=== PATIENT | male | born 1980 | race Caucasian/White ===

== ENCOUNTER 2021-04-17 16:42 | Inpatient (IN) | payer OTHER ==
[~2021-04-17] VITALS: Wt 63.8 kg
[2021-04-17 18:28] LABS: Magnesium, Blood 2.5 mg/dL (1.6-2.4)
[2021-04-17 18:32] LABS: Anion Gap 25 mmol/L (6-16); Blood Urea Nitrogen 9 mg/dL (8-24); Bun/Creatinine Ratio 14.9 (12.0-20.0); CO2, Blood 6 mmol/L (21-32); Calcium, Blood 8.7 mg/dL (8.5-10.1); Chloride, Blood 104 mmol/L (98-108); Creatinine, Blood 0.61 mg/dL (0.60-1.20); Glomerular Filtration Rate >60 (60-); Glucose, Blood 227 mg/dL (70-99); Phosphorus, Blood 1.1 mg/dL (2.5-4.9); Potassium, Blood 3.7 mmol/L (3.5-5.5); Sodium, Blood 135 mmol/L (136-145)
--- NOTE | 2021-04-17 19:37 | NUR ---
SUMMARY PT WAS A DIRECT ADMIT THIS EVENING. PT WAS FLOWN FROM [place] OR WITH DKA. HAD INSULIN GTT AND SODIUM BICARB WITH D5 RUNNING. NO ORDERS UPON ARRIVAL DUE TO DIRECT ADMIT. INSULIN AND FLUIDS ON HOLD AND DR. DON CAME TO ROOM. LABS HAD NOT BEEN DRAWN SINCE THIS AM THEREFORE LABS WERE DRAWN THEN STARTED NS AND INSULIN GTT. PT NAUSEATED THIS EVENING AND ZOFRAN GIVEN. PT IS A/O X4. ABLE TO MOVE SELF IN BED AND USE URINAL. PT HAS WALKING BOOT TO L FOOT FROM A FRACTURE THAT OCCURED IN SEPTEMBER. PT TAKES BOOT ON AND OFF HIMSELF. DR. ODN NOTIFIED OF LABS AND NEW ORDERS RECEIVED. REPORT GIVEN TO RAFITA JOHNSON.
[2021-04-17 21:48] LABS: Magnesium, Blood 2.5 mg/dL (1.6-2.4)
[2021-04-17 22:03] LABS: Anion Gap 26 mmol/L (6-16); Blood Urea Nitrogen 10 mg/dL (8-24); Bun/Creatinine Ratio 14.3 (12.0-20.0); CO2, Blood 6 mmol/L (21-32); Calcium, Blood 8.1 mg/dL (8.5-10.1); Chloride, Blood 107 mmol/L (98-108); Glomerular Filtration Rate >60 (60-); Glucose, Blood 257 mg/dL (70-99); Phosphorus, Blood 1.9 mg/dL (2.5-4.9); Potassium, Blood 3.6 mmol/L (3.5-5.5); Sodium, Blood 139 mmol/L (136-145)
--- NOTE | 2021-04-17 22:41 | NUR ---
SPOKE WITH DR. DON REGARDING CRITICAL CO2 X2 TODAY BOTH AT 6. TOLD TO ORDER 1L NS BOLUS WELL STAY HIGHER ON THE INSULIN DRIP. ORDERS PLACED AND WILL CONTINUE TO CHECK REPEAT LABS
[2021-04-18 02:11] LABS: Anion Gap 15 mmol/L (6-16); Blood Urea Nitrogen 9 mg/dL (8-24); CO2, Blood 14 mmol/L (21-32); Calcium, Blood 7.9 mg/dL (8.5-10.1); Chloride, Blood 113 mmol/L (98-108); Glomerular Filtration Rate >60 (60-); Glucose, Blood 200 mg/dL (70-99); Magnesium, Blood 2.2 mg/dL (1.6-2.4); Sodium, Blood 142 mmol/L (136-145)
[2021-04-18 02:16] LABS: Phosphorus, Blood 0.8 mg/dL (2.5-4.9)
--- NOTE | 2021-04-18 02:53 | NUR ---
CALL PLACED TO DR. TIJERINA REGARDING CRITICAL PHOS 0.8. ORDERED RECEIVED FOR KPHOS. RATE/DRIPS VERIFIED FOR CONTINUED USE. CO2 IMPROVING AND GAP 15. TOLD TO CONTINUE CVURRENT DRIPS AND TO CANCEL ALL LABS THIS MORNING AND CHECK AT 0600
[2021-04-18 05:39] LABS: BASOPHILS ABSOLUTE AUTO 0.02 K/mm3 (0.00-0.23); BASOPHILS PERCENT AUTO 0 % (0-2); EOSINOPHILS PERCENT AUTO 0 % (0-6); Hemoglobin 12.3 g/dL (13.5-17.5); IMMATURE GRAN ABSOLUTE AUTO 0.04 K/mm3 (0.00-0.10); IMMATURE GRAN PERCENT AUTO 1 % (0-1); LYMPHOCYTES ABSOLUTE AUTO 0.73 K/mm3 (0.84-5.20); LYMPHOCYTES PERCENT AUTO 11 % (21-46); MONOCYTES ABSOLUTE AUTO 0.84 K/mm3 (0.16-1.47); MONOCYTES PERCENT AUTO 13 % (4-13); Mean Corpuscular HGB Conc 36.2 g/dL (31.5-36.5); Mean Corpuscular Volume 94 fL (80-100); Mean Platelet Volume 8.6 fL (9.1-12.4); NEUTROPHILS ABSOLUTE AUTO 4.87 K/mm3 (1.96-9.15); NEUTROPHILS PERCENT AUTO 75 % (41-73); Platelet Count 206 K/mm3 (150-400); RDW Coefficient Variation 11.6 % (11.7-14.2); RDW Standard Deviation 39.5 fL (35.1-46.3); Red Blood Cell Count 3.62 M/mm3 (4.30-5.90)
--- NOTE | 2021-04-18 06:20 | NUR ---
SHIFT SUMMARY: PATIENT WAS VERY FRUSTRATED AT CHANGE OF SHIFT DUE TO HOW EVENTS UNFOLDED YESTERDAY ALL LEADING UP TO THIS ADMISSION WELL NOT GETTING PROPER INSULIN COVERAGE AND TREATMENT WHEN HE FIRST GOT HERE. INSULIN DRIP WAS STARTED AT 1830 BEFORE I CAME ON AND IT HAS BEEN HIGH 6UNITS/HR. GAP DOWN TO 15 AND CO2 ALSO IMPROVING. AWAITING 0530 LAB RESULTS TO HOPEFULLY TRANSITION HIM OFF THE DRIP TODAY. PATIENT LOOKS BETTER AND SAYS HE IS FEELING BETTER BUT REALLY WANTS TO DRINK FLUIDS CHARO. PATIENT ON D5NS AT 200ML/HR WELL INSULIN DRIP ONLY AT 1 UNIT/HR CURRENTLY. BS DOWN TO 140S. VOIDS APPROPRIATELY VIA URINAL. HE HAS SLOWLY BECOME MORE COOPERATIVE OVERNIGHT. A 3RD PIV WAS INSERTED WELL SO HE CAN USE AT LEAST ONE OF HIS ARMS. REFUSED TO ANSWER ADMISSION QUESTIONS INITIALLY AND A LOT OF TIMES HE WOULD JUST NOT REPLY. A LOT OF INITIAL QUESTIONS ANSWERED FINALLY. FILLED OUT THE "VERBAL RELEASE OF INFORMATION" FORM AND ASKED IF I COULD TOMAS HIS DAD DOWN AND HE LAUGHED AND SAIS NO. "NOBODY NEEDS TO KNOW ANY INFORMATION OR ANYTHING THAT IS GOING ON." CLARIFIED THAT IF HIS FATHER CALLED THAT HE DOES NOT WANT US TO TELL HIM ANYTHING AND HE AGREED. PATIENT DOES HAVE PHONE AT BEDSIDE IF HE CHOOSES TO USE
[2021-04-18 06:21] LABS: Alanine Aminotransfer (ALT/SGP 42 U/L (12-78); Albumin/Globulin Ratio 1.1 (0.8-1.8); Alk Phos 128 U/L (50-136); Anion Gap 10 mmol/L (6-16); Bilirubin, Total 0.8 mg/dL (0.1-1.0); Blood Urea Nitrogen 7 mg/dL (8-24); Bun/Creatinine Ratio 13.1 (12.0-20.0); CO2, Blood 17 mmol/L (21-32); Calcium, Blood 7.9 mg/dL (8.5-10.1); Chloride, Blood 116 mmol/L (98-108); Creatinine, Blood 0.54 mg/dL (0.60-1.20); Globulin, Blood 2.8 g/dL (2.2-4.0); Glomerular Filtration Rate >60 (60-); Glucose, Blood 156 mg/dL (70-99); Potassium, Blood 3.3 mmol/L (3.5-5.5); Sodium, Blood 143 mmol/L (136-145); Total Protein, Blood 5.8 g/dL (6.4-8.2)
[2021-04-18 06:31] LABS: Aspartate Aminotrans (AST/SGOT 27 U/L (12-37); Magnesium, Blood 2.3 mg/dL (1.6-2.4); Phosphorus, Blood 2.3 mg/dL (2.5-4.9)
[2021-04-18 11:18] LABS: C-REACTIVE PROTEIN, EXT RANGE 1.23 mg/dL (0.000-0.300); Percent Saturation 58.8 % (20.0-50.0)
--- NOTE | 2021-04-18 15:14 | NUR ---
RECIEVED REPORT FROM [employer]ETING SUPPORT SPECIALIST. PATIENT TO TRANSFER FROM ICU 11.
--- NOTE | 2021-04-18 15:15 | NUR ---
SUMMARY PT RESTING IN BED. A/O X4. INSULIN GTT AND IVF WERE TURNED OFF THIS AM 1.5 HRS AFTER LONG ACTING INSULIN WAS GIVEN. BLOOD SUGARS HAVE BEEN STABLE. PT HAS BEEN TOLERATING DIET AND DRINKING FLUIDS. PT HAS LUMP UNDER L ARMPIT THAT IS SLIGHTLY RED. NOTIFIED DR. RICO, NO NEW ORDERS. PT WAS HAVING HIGH BLOOD PRESSURE READINGS. NOTICED BP CUFF WAS ON LEG, MOVED IT UP TO UPPER ARM AND BP WAS BACK TO BASELINE. NO SIGN OF DISTRESS. PT TAKEN VIA W/C. REPORT GIVEN TO KETAN JOHNSON.
--- NOTE | 2021-04-18 15:40 | NUR ---
PATIENT ARRIVED TO ROOM 302 @ 1530. PATIENT SITUATED IN ROOM. CALL LIGHT WITHIN REACH.
--- NOTE | 2021-04-19 04:11 | NUR ---
SHIFT SUMMARY NO ACUTE CHANGES TO REPORT THIS SHIFT, PT HAS RESTED MOST OF THE NIGHT AND HAS DENIED NEEDS. PT IS DENYING PAIN AND HAS REFUSED SCHEDULED TORALDOL FOR LUMP UNDER ARMPIT. BLOOD SUGARS ARE ELEVATED BUT STABLE. PT INDEPENDENT IN THE ROOM. AFFECT IS FLAT AND WITHDRAWN, AND PT SOMEWHAT IRRITABLE. ENHANCED ISOLATION PRECAUTIONS IN PLACE, PT WITH MINIMAL COVID SYMPTOMS AND SATS WNL ON RA. BED IN LOWEST POSITION, CALL LIGHT WITHIN REACH.
[2021-04-19 05:05] LABS: Hematocrit 33.6 % (37.0-53.0); Hemoglobin 12.3 g/dL (13.5-17.5); Mean Corpuscular HGB 33.8 pg (26.0-34.0); Mean Corpuscular HGB Conc 36.6 g/dL (31.5-36.5); Mean Corpuscular Volume 92 fL (80-100); Mean Platelet Volume 9.1 fL (9.1-12.4); Platelet Count 184 K/mm3 (150-400); RDW Coefficient Variation 11.2 % (11.7-14.2); RDW Standard Deviation 38.2 fL (35.1-46.3); Red Blood Cell Count 3.64 M/mm3 (4.30-5.90); White Blood Cell Count 6.22 K/mm3 (4.00-11.30)
[2021-04-19 06:13] LABS: Alanine Aminotransfer (ALT/SGP 40 U/L (12-78); Albumin, Blood 3.1 g/dL (3.4-5.0); Albumin/Globulin Ratio 1.1 (0.8-1.8); Alk Phos 136 U/L (50-136); Anion Gap 19 mmol/L (6-16); Aspartate Aminotrans (AST/SGOT 21 U/L (12-37); Bilirubin, Total 0.9 mg/dL (0.1-1.0); Blood Urea Nitrogen 3 mg/dL (8-24); Bun/Creatinine Ratio 5.5 (12.0-20.0); CO2, Blood 16 mmol/L (21-32); Calcium, Blood 8.7 mg/dL (8.5-10.1); Chloride, Blood 98 mmol/L (98-108); Creatinine, Blood 0.54 mg/dL (0.60-1.20); Globulin, Blood 2.7 g/dL (2.2-4.0); Glomerular Filtration Rate >60 (60-); Glucose, Blood 208 mg/dL (70-99); Potassium, Blood 2.6 mmol/L (3.5-5.5); Sodium, Blood 133 mmol/L (136-145); Total Protein, Blood 5.8 g/dL (6.4-8.2)
--- NOTE | 2021-04-19 06:51 | NUR ---
POTASSIUM POTASSIUM 2.6 WITH AM LABS, DR. TIJERINA CALLED AND NOTIFIED. HE WOULD LIKE 80 MEQ TOTAL GIVEN OF POTASSIUM. 40 MEQ IV, AND 40 MEQ PO. ORDERS PLACED.
--- NOTE | 2021-04-19 18:25 | NUR ---
SHIFT SUMMARY PT AXO, IRRITABLE BUT COOPERATIVE WITH CARE. HYPTENTION NOTED WITH AM VITALS THOUGH OVERNIGHT CASHIER DID NOT NOTIFY NURSE. BP STABLE AT THIS TIME. PT MEDICATED FOR CBG PER EMAR THOUGH PT WOULD TAKE LESS INSULIN THAN SUGGESTED BY SLIDING SCALE, SEE EMAR. PT REPORTS PAIN IN AXILLA R/T CELLULITIS THOUGH REFUSED PAIN MEDICATION. IV PATENT AND SALINE LOCKED. PT REPORTS SOME OCCASIONAL COUGH. UP AD CRIS WITH BOOT. NO ACUTE CHANGES THIS SHIFT. BED IN LOW POSITION, CALL LIGHT WITHIN REACH.
[2021-04-19] MEDS ORDERED: BASAGLAR K100 UNIT/1 SC (22:36)
[2021-04-20 04:44] LABS: Hematocrit 33.3 % (37.0-53.0); Hemoglobin 12.3 g/dL (13.5-17.5); Mean Corpuscular HGB Conc 36.9 g/dL (31.5-36.5); Mean Corpuscular Volume 92 fL (80-100); Mean Platelet Volume 8.9 fL (9.1-12.4); Platelet Count 174 K/mm3 (150-400); RDW Coefficient Variation 11.3 % (11.7-14.2); RDW Standard Deviation 38.3 fL (35.1-46.3); Red Blood Cell Count 3.62 M/mm3 (4.30-5.90); White Blood Cell Count 5.14 K/mm3 (4.00-11.30)
--- NOTE | 2021-04-20 05:11 | NUR ---
SHIFT SUMMARY NO ACUTE CHANGES TO REPORT THIS SHIFT. PT HAS RESTED T/O THE SHIFT, HE HAS DENIED PAIN OR NEEDS. COVID SYMPTOMS REMAIN MILD, HE HAS AN OCCASIONAL COUGH. PT INDEPENDENT IN THE ROOM. VITALS STABLE. PLAN IS FOR POSSIBLE DC TODAY, BED IN LOWEST POSITION, CALL LIGHT WITHIN REACH.
[2021-04-20 05:18] LABS: Alanine Aminotransfer (ALT/SGP 36 U/L (12-78); Albumin, Blood 2.9 g/dL (3.4-5.0); Albumin/Globulin Ratio 0.9 (0.8-1.8); Alk Phos 132 U/L (50-136); Anion Gap 12 mmol/L (6-16); Aspartate Aminotrans (AST/SGOT 21 U/L (12-37); Bilirubin, Total 0.7 mg/dL (0.1-1.0); Blood Urea Nitrogen 6 mg/dL (8-24); Bun/Creatinine Ratio 10.8 (12.0-20.0); CO2, Blood 22 mmol/L (21-32); Calcium, Blood 8.9 mg/dL (8.5-10.1); Chloride, Blood 101 mmol/L (98-108); Creatinine, Blood 0.56 mg/dL (0.60-1.20); Globulin, Blood 3.2 g/dL (2.2-4.0); Glomerular Filtration Rate >60 (60-); Glucose, Blood 242 mg/dL (70-99); Magnesium, Blood 2.5 mg/dL (1.6-2.4); Potassium, Blood 3.4 mmol/L (3.5-5.5); Sodium, Blood 135 mmol/L (136-145); Total Protein, Blood 6.1 g/dL (6.4-8.2)
[2021-04-20] MEDS ORDERED: TRIPLE ANTIBIO1 EAC1 TOP (12:29)
[2021-04-20] MEDS ORDERED: INSULIN LI100 UNIT/8 SC (12:29)
[2021-04-20] MEDS ORDERED: CEPH500 PO (12:30)
[2021-04-20] MEDS ORDERED: HUMULIN R100 UNIT/2 SC (16:29)
--- NOTE | 2021-04-20 17:35 | NUR ---
DISCHARGED REVIEWED DC INSTRUCTIONS W/PT; VERBALIZED UNDERSTANDING. DC'D IV, CATHETER INTACT. PROVIDED SNACKS FOR TRIP. PT LEFT UNIT IN WC W/POSSESSIONS AND DC PAPERWORK IN HAND TO TRANSPORT OUTSIDE.
== END 2021-04-20 17:30 | disposition home or self-care (01) | DRG 637 ==
LOC: MEDS 16:42 → ICUW 16:42 → MEDS 04-18 15:36
PROVIDERS: Internal Medicine; ADMIT Internal Medicine
DX: E10.10 Type 1 diabetes mellitus with ketoacidosis without coma (principal); U07.1 COVID-19; E87.1 Hypo-osmolality and hyponatremia; L03.112 Cellulitis of left axilla; R05.9 Cough, unspecified; E87.6 Hypokalemia; D64.9 Anemia, unspecified; Z79.4 Long term (current) use of insulin; Z79.899 Other long term (current) drug therapy
CPT/HCPCS: 36415; 80048; 80053; 82728; 82947; 83540; 83550; 83735; 84100; 85025; 85027; 85379; 86140; A9270; J0696; J1650; J1815; J2405; J3480; J7030; J7040; J7042; J7060